=== PATIENT | male | born 1995 | race Caucasian/White ===

== ENCOUNTER 2024-04-18 10:36 | Outpatient (CLI) | payer BC ==
[2024-04-18] MEDS ORDERED: Magnevist 469MG/ML 20 ML VIAL ONE (11:15)
== END 2024-04-18 10:37 | disposition home or self-care (01) ==
LOC: CSHMRI 10:36
PROVIDERS: ATTEND Nurse Practitioner Family
DX: R20.0 Anesthesia of skin (principal); R20.2 Paresthesia of skin; R41.3 Other amnesia
CPT/HCPCS: 70553; 76376